=== PATIENT | male | born 1965 | race African-American/Black ===

== ENCOUNTER 2016-10-08 07:34 | Emergency (ER) | payer OTHER ==
[2016-10-08 07:39] VITALS: BP 125/85; PULSE 70; TEMP 97.6; BMI 27.0
--- NOTE | 2016-10-08 08:12 | PDOC ---
History of Present Illness - General Chief Complaint: Cold Symptoms Stated Complaint: WEAKNESS Time Seen by Provider: 10/08/16 07:46 History Source: Patient Exam Limitations: No Limitations - History of Present Illness Initial Comments: 10/08/16 08:12 CHIEF COMPLAINT: Cold symptoms HISTORY OF PRESENT ILLNESS: This is a 50 year old male with no significant past medical history who presents to the ED complaining of three days of chills, frontal headache, rhinorrhea, and dry cough. He has some chest pain when coughing only, but none at rest. He denies shortness of breath. He took 800mg Motrin prior to arrival with no relief of symptoms. Vital signs are unremarkable. REVIEW OF SYSTEMS: GENERAL/CONSTITUTIONAL: Chills. No weakness. No weight change. HEAD, EYES, EARS, NOSE AND THROAT: Frontal headache, rhinorrhea. CARDIOVASCULAR: Chest pain with coughing only. RESPIRATORY: Cough. No wheezing or shortness of breath. GASTROINTESTINAL: No nausea, vomiting, diarrhea or constipation. GENITOURINARY: No dysuria, frequency, or change in urination. MUSCULOSKELETAL: No joint or muscle swelling or pain. No neck or back pain. SKIN: No rash or easy bruising. NEUROLOGIC: No headache, vertigo, loss of consciousness, or loss of sensation. PSYCHIATRIC: No depression or anxiety. ENDOCRINE: No increased thirst. No abnormal weight change. HEMATOLOGIC/LYMPHATIC: No anemia, easy bleeding, or history of blood clots. ALLERGIC/IMMUNOLOGIC: No hives or skin allergy. No latex allergy. PHYSICAL EXAM: GENERAL: The patient is awake, alert, and fully oriented, in no acute distress. HEAD: Normal with no signs of trauma. ENT: Rhinorrhea, frontal sinus tenderness. LUNGS: Clear to auscultation bilaterally. Normal excursion. No respiratory distress or use of accessory muscles. CV: RRR, S1/S2, no MRG. Cap refill < 2 sec. ABDOMEN: Soft, non-distended, non-tender. EXTREMITIES: Normal range of motion, no edema. NEUROLOGICAL: Normal speech, normal gait. CN II-XII grossly intact. PSYCH: Normal mood, normal affect. SKIN: Warm, dry, normal turgor, no rashes or lesions noted. Past History - Past Medical History Allergies/Adverse Reactions: Allergies Allergy/AdvReac Type Severity Reaction Status Date / Time penicillin V Allergy Verified 10/08/16 07:35 Home Medications: Ambulatory Orders Levofloxacin [Levaquin -] 500 mg PO DAILY #7 tablet 10/08/16 Oseltamivir Phosphate [Tamiflu] 75 mg PO BID #10 capsule 10/08/16 Other medical history: none - Immunization History Immunization Up to Date: Yes - Psycho/Social/Smoking Cessation Hx Anxiety: No Suicidal Ideation: No Smoking Status: No Smoking History: Never smoked Have you smoked in the past 12 months: No Number of Cigarettes Smoked Daily: 0 Information on smoking cessation initiated: No Hx Alcohol Use: No Drug/Substance Use Hx: No Substance Use Type: None *Physical Exam - Vital Signs Last Vital Signs Temp Pulse Resp BP Pulse Ox 97.6 F 70 18 125/85 100 10/08/16 07:36 10/08/16 07:36 10/08/16 07:36 10/08/16 07:36 10/08/16 07:36 ED Treatment Course - RADIOLOGY Radiology Studies Ordered: Category Date Time Status CHEST PA & LAT [RAD] Stat Radiology 10/08/16 08:10 Ordered Medical Decision Making - Medical Decision Making 10/08/16 09:20 A/P: 50 year old male with cold/sinusitis symptoms. 1. Levaquin (PCN allergy) and flonase for sinusitis 2. CXR: no infiltrate 3. Flu A positive *DC/Admit/Observation/Transfer Diagnosis at time of Disposition: Influenza A Sinusitis Qualifiers: Sinusitis location: frontal Chronicity: acute Recurrence: non-recurrent Qualified Code(s): J01.10 - Acute frontal sinusitis, unspecified - Discharge Dispostion Disposition: HOME Admit: No - Prescriptions Prescriptions: Levofloxacin [Levaquin -] 500 mg PO DAILY #7 tablet Oseltamivir Phosphate [Tamiflu] 75 mg PO BID #10 capsule - Referrals Referrals: Rohit López MD [Primary Care Provider] - 1 week - Patient Instructions Printed Discharge Instructions: DI for Sinusitis, DI for Influenza -- Adult Additional Instructions: -Take Levaquin and use Flonase spray as prescribed for sinusitis -Take Tamiflu for influenza; you MUST stay home from work -Rest and stay well-hydrated -Follow up with your primary care doctor -Return here for any concerning symptoms - Post Discharge Activity Work/School Note: Back to Work
[2016-10-08] MEDS ORDERED: FLUTICASONE PROP 0.05% 16 GM NASAL SPRAY NS ONE (08:50)
== END 2016-10-08 09:22 | disposition home or self-care (01) ==
LOC: JER 07:34
DX: J09.X2 Influenza due to identified novel influenza A virus with other respiratory manifestations (principal); J01.10 Acute frontal sinusitis, unspecified
CPT/HCPCS: 71020-TC; 87804; 99281-25

== ENCOUNTER 2018-06-08 03:33 | Emergency (ER) | payer OTHER ==
[2018-06-08 03:53] VITALS: BMI 30.5
--- NOTE | 2018-06-08 04:12 | PDOC ---
History of Present Illness - General Chief Complaint: Sore Throat Stated Complaint: SORE THROAT Time Seen by Provider: 06/08/18 03:37 History Source: Patient Exam Limitations: No Limitations - History of Present Illness Initial Comments: 06/08/18 04:36 Best Contact: PCP:Dr. James. López Pmhx:0 Pshx:0 Allergies: PCN/throat closes FH:0 Social Hx: Cigarettes/ denies Alcohol/ social Drugs/0 LMP:N/A 52-year-old male presents to the emergency department complaining of a sore throat 2 days. Patient states the pain is described as 3/10 sore nonradiating intermittent discomfort without alleviating or exacerbating factors. Patient denies any nausea/vomiting, fever/chills, headache, dizziness, lightheadedness, facial pains, rate, runny nose, rhinorrhea, nasal congestion, facial pains, neck pain/stiffness, back pains, shortness of breath, chest pain, abdominal discomfort. Past History - Past Medical History Allergies/Adverse Reactions: Allergies Allergy/AdvReac Type Severity Reaction Status Date / Time penicillin V Allergy Verified 10/08/16 07:35 - Immunization History Immunization Up to Date: Yes - Suicide/Smoking/Psychosocial Hx Smoking Status: No Smoking History: Never smoked Have you smoked in the past 12 months: No Number of Cigarettes Smoked Daily: 0 Information on smoking cessation initiated: No Hx Alcohol Use: Yes Drug/Substance Use Hx: No Substance Use Type: None Review of Systems - Review of Systems Able to Perform ROS?: Yes Comments:: 06/08/18 04:38 CONSTITUTIONAL: Absent: fever, chills, diaphoresis, generalized weakness, malaise, loss of appetite HEENT: +sore throat Absent: rhinorrhea, nasal congestion,throat swelling, difficulty swallowing, mouth swelling, ear pain, eye pain, visual Changes CARDIOVASCULAR: Absent: chest pain, loss of consciousness, palpitations, irregular heart rate, peripheral edema RESPIRATORY: Absent: cough, shortness of breath, dyspnea with exertion, orthopnea, wheezing, stridor, hemoptysis GASTROINTESTINAL: Absent: abdominal pain, abdominal distension, nausea, vomiting, diarrhea, constipation, melena, hematochezia GENITOURINARY: Absent: dysuria, frequency, urgency, hesitancy, hematuria, flank pain, genital pain MUSCULOSKELETAL: Absent: myalgia, arthralgia, joint swelling SKIN: Absent: rash, itching, pallor Is the patient limited Telugu proficient: No *Physical Exam - Vital Signs Last Vital Signs Temp Pulse Resp BP Pulse Ox 98.8 F 88 17 127/55 99 06/08/18 03:48 06/08/18 03:48 06/08/18 03:48 06/08/18 03:48 06/08/18 03:48 - Physical Exam Comments: 06/08/18 04:38 GENERAL: Well developed, well nourished. Awake and alert. No acute distress. HEENT: Normocephalic, atraumatic. PERRLA, EOMI. No conjunctival pallor. Sclera are non- icteric. Moist mucous membranes. Oropharynx is clear. NECK: Supple. Full ROM. No JVD. Carotid pulses 2+ and symmetric, without bruits. No thyromegaly. No lymphadenopathy. CARDIOVASCULAR: Regular rate and rhythm. No murmurs, rubs, or gallops. Distal pulses are 2+ and symmetric. PULMONARY: No evidence of respiratory distress. Lungs clear to auscultation bilaterally. No wheezing, rales or rhonchi. *DC/Admit/Observation/Transfer Diagnosis at time of Disposition: Pharyngitis Qualifiers: Pharyngitis/tonsillitis etiology: unspecified etiology Qualified Code(s): J02.9 - Acute pharyngitis, unspecified - Discharge Dispostion Disposition: HOME Condition at time of disposition: Stable Decision to Admit order: No - Referrals Referrals: Mello Julian MD [Staff Physician] - - Patient Instructions Printed Discharge Instructions: DI for Viral Pharyngitis Additional Instructions: Garfle with salt water Tylenol alternating with motrin every 6 hours as needed for pain Follow up with the ENT within the next 3 days Return to the ER for severe/persistent/worsening symptoms - Post Discharge Activity
[2018-06-08 04:29] VITALS: BP 128/89; PULSE 67; TEMP 98.3
== END 2018-06-08 04:35 | disposition home or self-care (01) ==
LOC: JER 03:33
DX: J02.9 Acute pharyngitis, unspecified (principal)
CPT/HCPCS: 87070; 87430; 99281-25

== ENCOUNTER 2018-11-24 09:21 | Emergency (ER) | payer OTHER ==
[2018-11-24 09:32] VITALS: BP 143/99; PULSE 71; TEMP 98.3; BMI 27.6
[2018-11-24] MEDS ORDERED: ACETAMINOPHEN 325 MG TABLET (FP) PO ONE (10:10)
[2018-11-24] MEDS ORDERED: ACETAMINOPHEN 325 MG TABLET (FP) ONE (10:13)
--- NOTE | 2018-11-24 10:14 | PDOC ---
History of Present Illness - General Chief Complaint: Cold Symptoms Stated Complaint: FLU SYSMPTOMS Time Seen by Provider: 11/24/18 09:59 History Source: Patient Exam Limitations: Clinical Condition - History of Present Illness Initial Comments: 11/24/18 10:11 Patient with no significant past medical history present with complaint of nasal congestion, headache, body aches, runny nose and right ear pressure with tactile fever and chills since yesterday. Patient also reports sore throat since yesterday. Patient did not check temperature. Denies nausea, vomiting, abdominal pain. Patient denies any other symptoms Timing/Duration: 24 hours Past History - Past Medical History Allergies/Adverse Reactions: Allergies Allergy/AdvReac Type Severity Reaction Status Date / Time penicillin V Allergy Verified 11/24/18 09:29 Home Medications: Ambulatory Orders Benzonatate [Tessalon Pearls -] 100 mg PO Q8H PRN #12 capsule 11/24/18 Ipratropium [place] 2 spray NS BID PRN #1 spray 11/24/18 Methylprednisolone [Medrol Dose Adria] 4 mg PO ASDIR #21 tablet 11/24/18 Oseltamivir Phosphate [Tamiflu] 75 mg PO BID 5 Days #10 capsule 11/24/18 COPD: No - Immunization History Immunization Up to Date: Yes - Suicide/Smoking/Psychosocial Hx Smoking Status: No Smoking History: Never smoked Have you smoked in the past 12 months: No Number of Cigarettes Smoked Daily: 0 Hx Alcohol Use: Yes Drug/Substance Use Hx: No Substance Use Type: None Review of Systems - Review of Systems Able to Perform ROS?: Yes Is the patient limited Armenian proficient: No Constitutional: Yes: See HPI, Chills, Fever (tactile), Malaise HEENTM: Yes: Symptoms Reported, See HPI, Nose Congestion, Throat Pain. No: Eye Pain, Blurred Vision, Tearing, Recent change in vision, Double Vision, Cataracts , Ear Pain, Ocular Prothesis, Ear Discharge, Nose Pain, Tinnitus, Nose Bleeding , Hearing Loss, Throat Swelling, Mouth Pain, Dental Problems, Difficulty Swallowing, Mouth Swelling, Other Respiratory: Yes: Symptoms reported, See HPI, Cough (intermittent). No: Orthopnea, Shortness of Breath, SOB with Exertion, SOB at Rest, Stridor, Wheezing, Productive cough, Hemoptysis, Other Cardiac (ROS): No: Symptoms Reported, See HPI, Chest Pain, Edema, Irregular Heart Rate, Lightheadedness, Palpitations, Syncope, Chest Tightness, Other ABD/GI: No: Constipated, Diarrhea, Nausea, Vomiting, Abdominal cramping Neurological: Yes: Headache. No: Numbness, Paresthesia, Tingling, Dizziness All Other Systems: Reviewed and Negative *Physical Exam - Vital Signs Last Vital Signs Temp Pulse Resp BP Pulse Ox 98.3 F 71 18 143/99 100 11/24/18 09:29 11/24/18 09:29 11/24/18 09:29 11/24/18 09:29 11/24/18 09:29 - Physical Exam Comments: 11/24/18 10:12 GENERAL: Well developed, well nourished. Awake and alert. No acute distress. HEENT: Normocephalic, atraumatic. PERRLA, EOMI. No conjunctival pallor. Sclera are non-icteric. Moist mucous membranes. Oropharynx is clear. NECK: Supple. Full ROM. CARDIOVASCULAR: Regular rate and rhythm. No murmurs, rubs, or gallops. Distal pulses are 2+ and symmetric. PULMONARY: No evidence of respiratory distress. Lungs clear to auscultation bilaterally. No wheezing, rales or rhonchi. ABDOMINAL: Soft. Non-tender. Non-distended. No rebound or guarding. No organomegaly. Normoactive bowel sounds. MUSCULOSKELETAL Normal range of motion at all joints. SKIN: Warm and dry. No cyanosis. Normal capillary refill. No rashes. No jaundice. NEUROLOGICAL: Alert, awake, appropriate. Gait is normal without ataxia. PSYCHIATRIC: Cooperative. Good eye contact. Appropriate mood General Appearance: Yes: Nourished, Appropriately Dressed. No: Apparent Distress Moderate Sedation - Procedure Monitoring Vital Signs: Procedure Monitoring Vital Signs Temperature 98.3 F 11/24/18 09:29 Pulse Rate 71 11/24/18 09:29 Respiratory Rate 18 11/24/18 09:29 Blood Pressure 143/99 11/24/18 09:29 O2 Sat by Pulse Oximetry (%) 100 11/24/18 09:29 Medical Decision Making - Medical Decision Making 11/24/18 10:13 Patient with no significant past medical history present with complaint of 24 hour history of URI symptoms with sore throat and tactile fever and chills. Clinical exam unremarkable lungs clear to auscultation and no pharyngeal erythema. Symptoms likely influenza versus strep pharyngitis versus viral syndrome. Rapid strep and rapid flu tests ordered. Tylenol 650 mg by mouth ordered for headache. Treat based on lab results 11/24/18 11:06 Rapid strep and rapid flu negative. Patient's symptoms likely viral syndrome. Patient is stable for outpatient treatment with Medrol Adria and Tessalon Perles for cough with nasal spray for nasal congestion and Tylenol as needed for fever. Patient stable for discharge *DC/Admit/Observation/Transfer Diagnosis at time of Disposition: Viral syndrome, Pharyngitis with viral syndrome URI (upper respiratory infection) Qualifiers: URI type: unspecified viral URI Qualified Code(s): J06.9 - Acute upper respiratory infection, unspecified - Discharge Dispostion Disposition: HOME Condition at time of disposition: Stable Decision to Admit order: No - Prescriptions Prescriptions: Benzonatate [Tessalon Pearls -] 100 mg PO Q8H PRN #12 capsule PRN Reason: Cough Ipratropium [place] 2 spray NS BID PRN #1 spray PRN Reason: nasal congestion Methylprednisolone [Medrol Dose Adria] 4 mg PO ASDIR #21 tablet Oseltamivir Phosphate [Tamiflu] 75 mg PO BID 5 Days #10 capsule - Referrals Referrals: Familia López MD [Primary Care Provider] - - Patient Instructions Printed Discharge Instructions: DI for Viral Upper Respiratory Infection -- Adult Additional Instructions: No strep and flu test was negative. Take medications as prescribed. Increase fluid intake. Take Tylenol as needed for fever. Follow-up with primary cast needed - Post Discharge Activity
== END 2018-11-24 11:12 | disposition home or self-care (01) ==
LOC: JERFT 09:21
DX: J06.9 Acute upper respiratory infection, unspecified (principal); J02.9 Acute pharyngitis, unspecified; B34.9 Viral infection, unspecified
CPT/HCPCS: 87070; 87804; 87880; 99281-25

== ENCOUNTER 2019-03-04 07:57 | Emergency (ER) | payer OTHER | END 2019-03-04 09:29 | disposition home or self-care (01) | LOC: JER 07:57 ==

== ENCOUNTER 2019-11-18 07:40 | Emergency (ER) | payer OTHER ==
[2019-11-18 07:54] VITALS: BP 129/83; PULSE 63; TEMP 98.4; BMI 27.6
--- NOTE | 2019-11-18 08:00 | PDOC ---
History of Present Illness - General Chief Complaint: Cold Symptoms Stated Complaint: FLU-LIKE SYMPTOMS Time Seen by Provider: 11/18/19 07:50 - History of Present Illness Initial Comments: 11/18/19 07:55 CHIEF COMPLAINT: cold symptoms HISTORY OF PRESENT ILLNESS: 54 yo M with no significant PMh presents sore throat, nasal congestion, and cough x 2 days. Patient denies fever, chills, N/V /D. Patient has not taken anything for symptoms. Report pain with swallowing. Denies sick contacts or recent travel. PAST MEDICAL HISTORY: Denies past medical history FAMILY HISTORY: Denies SOCIAL HISTORY: Denies tobacco, alcohol, illicit drug use. SURGICAL HISTORY: Denies ALLERGIES: No known drug allergies REVIEW OF SYSTEMS General/Constitutional: Denies fever or chills. Denies weakness, weight change. HEENT: Sore throat, runny nose x 2 days. Denies change in vision. Denies ear pain or discharge. Cardiovascular: Denies chest pain or shortness of breath. Respiratory: Cough since this morning. Gastrointestinal: Denies nausea, vomiting, diarrhea or constipation. Denies rectal bleeding. Genitourinary: Denies dysuria, frequency, or change in urination. Musculoskeletal: Denies joint or muscle swelling or pain. Denies neck or back pain. Skin and breasts: Denies rash or easy bruising. Neurologic: Denies headache, vertigo, loss of consciousness, or loss of sensation. Psychiatric: Denies depression or anxiety. PHYSICAL EXAM General Appearance: Well-appearing, appropriately dressed. No apparent distress , no intoxication. HEENT: Mildly erythematous posterior oropharynx, post nasal drip visualized. Tonsils 1+ b/l without exudate. EOMI, PERRLA, normal ENT inspection, normal voice, TMs normal, pharynx normal. No conjunctival pallor. No photophobia, scleral icterus. Neck: Supple. Trachea midline. No tenderness, rigidity, carotid bruit, stridor , lymphadenopathy, or thyromegaly. Respiratory/Chest: Lungs CTAB. No shortness of breath, chest tenderness, respiratory distress, accessory muscle use. No crackles, rales, rhonchi, stridor , wheezing, dullness Cardiovascular: RRR. S1, S2. No JVD, murmur, bradycardia, tachycardia. Vascular Pulses: Dorsalis-Pedis (R): 2+, Dorsalis-Pedis (L): 2+ Gastrointestinal/Abdominal: Normal bowel sounds. Abdomen soft, non-distended. No tenderness or rebound tenderness. No organomegaly, pulsatile mass, guarding , hernia, hepatomegaly, splenomegaly. Lymphatic: No adenopathy, tenderness. Musculoskeletal/Extremities: Normal inspection. FROM of all extremities, normal capillary refill. Pelvis Stable. No CVA tenderness. No tenderness to extremities, pedal edema, swelling, erythema or deformity. Integumentary: Appropriate color, dry, warm. No cyanosis, erythema, jaundice or rash Neurologic: director of events II-XII intact. Fully oriented, alert. Appropriate mood/affect. Motor strength 5/5. No appreciable EOM palsy, facial droop or sensory deficit. 11/18/19 08:01 Past History - Past Medical History Allergies/Adverse Reactions: Allergies Allergy/AdvReac Type Severity Reaction Status Date / Time penicillin V Allergy Verified 03/04/19 08:02 Penicillins Allergy Verified 11/18/19 07:47 Home Medications: Ambulatory Orders Ipratropium [place] 2 spray NS BID PRN #1 spray 03/04/19 Montelukast Na [Singulair -] 10 mg PO HS #7 tablet 03/04/19 Benzonatate [Tessalon Perle -] 100 mg PO TID PRN #21 capsule 11/18/19 Pseudoephedrine HCl [Pseudoephedrine ER] 120 mg PO BID #20 tablet.er 11/18/19 COPD: No - Immunization History Immunization Up to Date: Yes - Psycho Social/Smoking Cessation Hx Smoking Status: No Smoking History: Never smoked Have you smoked in the past 12 months: No Number of Cigarettes Smoked Daily: 0 Information on smoking cessation initiated: No Hx Alcohol Use: Yes (occasional) Drug/Substance Use Hx: No Substance Use Type: None *Physical Exam - Vital Signs Last Vital Signs Temp Pulse Resp BP Pulse Ox 98.4 F 63 19 129/83 100 11/18/19 07:44 11/18/19 07:44 11/18/19 07:44 11/18/19 07:44 11/18/19 07:44 Medical Decision Making - Medical Decision Making 11/18/19 16:38 54 yo M with no significant PMh presents sore throat, nasal congestion, and cough x 2 days. strep negative Clinical presentation consistent with acute URI. -tessalon perles -jayashree Advised patient to take medication as prescribed and follow up with PCP within the next week. Advised patient of signs and symptoms for return to ED. Patient verbalized understanding and agrees to plan. Discharge - Discharge Information Problems reviewed: Yes Clinical Impression/Diagnosis: URI (upper respiratory infection) Qualifiers: URI type: unspecified viral URI Qualified Code(s): J06.9 - Acute upper respiratory infection, unspecified Condition: Stable Disposition: HOME - Admission No - Additional Discharge Information Prescriptions: Benzonatate [Tessalon Perle -] 100 mg PO TID PRN #21 capsule PRN Reason: Cough Pseudoephedrine HCl [Pseudoephedrine ER] 120 mg PO BID #20 tablet.er - Follow up/Referral Referrals: Familia López MD [Primary Care Provider] - - Patient Discharge Instructions Patient Printed Discharge Instructions: DI for Viral Upper Respiratory Infection -- Adult - Post Discharge Activity Work/Back to School Note: Back to Work
== END 2019-11-18 08:34 | disposition home or self-care (01) ==
LOC: JER 07:40
DX: J06.9 Acute upper respiratory infection, unspecified (principal); Z88.0 Allergy status to penicillin
CPT/HCPCS: 87070; 87077; 87880; 99283-25

== ENCOUNTER 2021-08-09 14:04 | Emergency (ER) | payer OTHER ==
[2021-08-09 14:21] VITALS: BMI 25.0
[2021-08-09] MEDS ORDERED: FAMOTIDINE 20 MG/50 ML IVPB 20 MG/50 ML MG IVPB ONE ×2 (15:04→15:12)
[2021-08-09] MEDS ORDERED: ACETAMINOPHEN 1000 MG/100 ML VIAL IVPB ONE (15:04)
[2021-08-09] MEDS ORDERED: ACETAMINOPHEN INJECTION 100 ML IVPB ONE (15:12)
[2021-08-09 16:02] LABS: BASO % 0.5 % (0-2.0); EOS % 0.1 % (0-4.5); HEMOGLOBIN 14.8 GM/dL (11.7-16.9); LYMPH % 14.3 % (8-40); MCH 30.8 pg (25.7-33.7); MCHC 34.4 g/dl (32.0-35.9); MEAN CELL VOLUME 89.5 fl (80-96); MONO % 8.2 % (3.8-10.2); NEUT % 76.9 % (42.8-82.8); PLATELET COUNT 206 10^3/uL (134-434); RDW 12.9 % (11.9-15.9); WHITE BLOOD COUNT 6.5 K/mm3 (4.0-10.0)
[2021-08-09 16:20] LABS: ALBUMIN 3.8 g/dl (3.4-5.0); BLOOD UREA NITROGEN 14.3 mg/dL (7-18); CALCIUM 9.2 mg/dL (8.5-10.1)
[2021-08-09 16:23] LABS: CREATININE 1.4 mg/dL (0.55-1.3)
[2021-08-09 16:24] LABS: TOT PROT 7.3 g/dl (6.4-8.2)
[2021-08-09 16:25] LABS: BILIRUBIN,TOTAL 0.4 mg/dL (0.2-1)
[2021-08-09] MEDS ORDERED: SODIUM CHLORIDE 1,000 ML IV STA (17:59)
[2021-08-09] MEDS ORDERED: TAMSULOSIN HCL 0.4 MG CAP PO ONE (18:00)
[2021-08-09] MEDS ORDERED: KETOROLAC TROMETHAMINE 30 MG/1 ML VIAL IVPUSH ONE (18:00)
[2021-08-09] MEDS ORDERED: KETOROLAC TROMETHAMINE 30 MG/1 ML VIAL ONE (18:04)
[2021-08-09] MEDS ORDERED: TAMSULOSIN HCL 0.4 MG CAP ONE (18:04)
[2021-08-09 18:07] LABS: EPI CELLS 2 /uL (0-25.1); HYALINE CASTS 0 /uL (0-3.1); PH,URINE 8.5 (5.0-8.0); URINE APPEARANCE CLOUDY; URINE BACTERIA 2 /uL (0-1359); URINE BILIRUBIN NEGATIVE (NEGATIVE); URINE COLOR YELLOW; URINE GLUCOSE (UA) NEGATIVE (NEGATIVE); URINE KETONE 1+ (NEGATIVE); URINE LEUK ESTERASE NEGATIVE (NEGATIVE); URINE NITRITE NEGATIVE (NEGATIVE); URINE PROTEIN TRACE (NEGATIVE); URINE RBC 517 /uL (0-23.9); URINE WBC 2 /uL (0-25.8)
[2021-08-09 19:06] VITALS: BP 132/75; PULSE 75; TEMP 98.2
== END 2021-08-09 19:00 | disposition home or self-care (01) ==
LOC: JER 14:04
PROC: 3E0333Z Introduction of Anti-inflammatory into Peripheral Vein, Percutaneous Approach (ICD-10-PCS; principal; 2021-08-09)
PROC: 3E033GC Introduction of Other Therapeutic Substance into Peripheral Vein, Percutaneous Approach (ICD-10-PCS; 2021-08-09)
PROC: 3E0333Z Introduction of Anti-inflammatory into Peripheral Vein, Percutaneous Approach (ICD-10-PCS; 2021-08-09)
PROC: 3E0337Z Introduction of Electrolytic and Water Balance Substance into Peripheral Vein, Percutaneous Approach (ICD-10-PCS; 2021-08-09)
DX: R10.814 Left lower quadrant abdominal tenderness (principal); N20.0 Calculus of kidney
CPT/HCPCS: 36415; 74177-TC; 80053; 81003; 83690; 85025; 99285-25; J0131; Q9967

== ENCOUNTER 2021-12-03 09:00 | Emergency (ER) | payer OTHER ==
[2021-12-03 09:16] VITALS: BP 148/86; PULSE 59; TEMP 98.9; BMI 26.6
[2021-12-03] MEDS ORDERED: IBUPROFEN 600 MG TABLET (FP) PO ONE ×2 (09:33→09:36)
== END 2021-12-03 10:21 | disposition home or self-care (01) ==
LOC: FER 09:00
DX: M25.562 Pain in left knee (principal)
CPT/HCPCS: 73562-TC-LT-FY; 99283-25

== ENCOUNTER 2021-12-31 06:03 | Emergency (ER) | payer OTHER ==
[2021-12-31 06:36] VITALS: BP 134/86; PULSE 62; TEMP 97.6; BMI 25.8
[2021-12-31] MEDS ORDERED: IBUPROFEN 600 MG TABLET (FP) PO ONE (07:36)
== END 2021-12-31 08:35 | disposition home or self-care (01) ==
LOC: JER 06:03
DX: S63.502A Unspecified sprain of left wrist, initial encounter (principal); X50.0XXA Overexertion from strenuous movement or load, initial encounter
CPT/HCPCS: 73110-TC-LT-FY; 73130-TC-LT-FY; 99283-25

== ENCOUNTER 2022-03-16 06:35 | Emergency (ER) | payer OTHER ==
[2022-03-16 06:41] VITALS: BP 140/90; PULSE 58; TEMP 98; BMI 25.8
[2022-03-16] MEDS ORDERED: DEXAMETHASONE SOD PHOSPHATE 10 MG/1 ML VIAL IM ONE (07:21)
[2022-03-16] MEDS ORDERED: NAPROXEN 500 MG TABLET PO ONE (07:21)
[2022-03-16] MEDS ORDERED: NAPROXEN 500 MG TABLET ONE (07:31)
[2022-03-16] MEDS ORDERED: DEXAMETHASONE SOD PHOSPHATE 10 MG/1 ML VIAL ONE (07:31)
[2022-03-16 09:36] LABS: THROAT:GRP A STREP NOT DETECTED (NOTDETECTED)
== END 2022-03-16 08:22 | disposition home or self-care (01) ==
LOC: FER 06:35
PROC: 3E023GC Introduction of Other Therapeutic Substance into Muscle, Percutaneous Approach (ICD-10-PCS; principal; 2022-03-16)
DX: J02.9 Acute pharyngitis, unspecified (principal); R05.9 Cough, unspecified
CPT/HCPCS: 0241U-QW; 71046-TC-FY; 87651; 99284-25; J1100

== ENCOUNTER 2022-08-13 06:48 | Emergency (ER) | payer OTHER ==
[2022-08-13 06:53] VITALS: BP 134/90; PULSE 62; RESP 18; TEMP 98.8; BMI 25.5
[2022-08-13] MEDS ORDERED: IBUPROFEN 600 MG TABLET (FP) PO ONE ×2 (07:28→07:30)
== END 2022-08-13 07:44 | disposition home or self-care (01) ==
LOC: FER 06:48
DX: J02.9 Acute pharyngitis, unspecified (principal)
CPT/HCPCS: 0241U-QW; 87651; 99283-25

== ENCOUNTER 2022-10-01 07:28 | Emergency (ER) | payer OTHER ==
[2022-10-01 07:44] VITALS: BP 140/81; PULSE 68; RESP 16; TEMP 98.8; BMI 25.9
[2022-10-01] MEDS ORDERED: IBUPROFEN 600 MG TABLET (FP) PO ONE ×2 (07:57→08:01)
[2022-10-01 09:38] LABS: THROAT:GRP A STREP NOT DETECTED (NOTDETECTED)
== END 2022-10-01 08:57 | disposition home or self-care (01) ==
LOC: FER 07:28
DX: J02.9 Acute pharyngitis, unspecified (principal)
CPT/HCPCS: 0241U-QW; 71046-TC-FY; 87651; 99284-25

== ENCOUNTER 2023-09-10 07:05 | Emergency (ER) | payer OTHER ==
[2023-09-10 07:12] VITALS: BP 145/89; PULSE 72; RESP 16; TEMP 98.8; BMI 25.0
[2023-09-10] MEDS ORDERED: IBUPROFEN 400 MG TABLET (FP) PO ONE ×2 (07:48→07:49)
== END 2023-09-10 07:53 | disposition home or self-care (01) ==
LOC: FER 07:05
DX: J02.9 Acute pharyngitis, unspecified (principal); R09.81 Nasal congestion; R05.9 Cough, unspecified; M79.10 Myalgia, unspecified site; J06.9 Acute upper respiratory infection, unspecified; Z20.822 Contact with and (suspected) exposure to COVID-19
CPT/HCPCS: 0241U-QW; 99283-25

== ENCOUNTER 2023-11-20 06:55 | Emergency (ER) | payer OTHER ==
[2023-11-20 07:04] VITALS: BP 140/93; PULSE 66; RESP 18; TEMP 98.4; BMI 25.8
[2023-11-20] MEDS ORDERED: KETOROLAC TROMETHAMINE 30 MG/1 ML VIAL ONE (07:47)
[2023-11-20] MEDS ORDERED: LIDOCAINE 5% TOPICAL PATCH ONE (07:47)
[2023-11-20] MEDS: KETOROLAC TROMETHAMINE 30 MG/1 ML VIAL IM ONE (08:01)
[2023-11-20] MEDS: LIDOCAINE 5% TOPICAL PATCH TP ONE (08:02)
== END 2023-11-20 08:06 | disposition home or self-care (01) ==
LOC: FER 06:55
PROC: 3E0233Z Introduction of Anti-inflammatory into Muscle, Percutaneous Approach (ICD-10-PCS; principal; 2023-11-20)
DX: S46.912A Strain of unspecified muscle, fascia and tendon at shoulder and upper arm level, left arm, initial encounter (principal); M25.512 Pain in left shoulder; X58.XXXA Exposure to other specified factors, initial encounter; Y93.43 Activity, gymnastics
CPT/HCPCS: 73030-TC-LT-FY; 99284-25

== ENCOUNTER 2024-01-05 08:46 | Emergency (ER) | payer OTHER ==
[2024-01-05 09:11] VITALS: BP 149/98; PULSE 55; RESP 20; TEMP 98; BMI 25.8
[2024-01-05] MEDS ORDERED: KETOROLAC TROMETHAMINE 15 MG/ML VIAL ONE (09:42)
[2024-01-05] MEDS: KETOROLAC TROMETHAMINE 15 MG/ML VIAL IM ONE (09:49)
== END 2024-01-05 09:56 | disposition home or self-care (01) ==
LOC: FER 08:46
PROC: 3E0233Z Introduction of Anti-inflammatory into Muscle, Percutaneous Approach (ICD-10-PCS; principal; 2024-01-05)
DX: M25.512 Pain in left shoulder (principal)
CPT/HCPCS: 99284-25

== ENCOUNTER 2025-04-22 07:10 | Emergency (ER) | payer OTHER ==
[2025-04-22 07:18] VITALS: BP 147/95; PULSE 64; RESP 18; TEMP 97.9; BMI 27.0
[2025-04-22] MEDS ORDERED: guaiFENesin/D-METHORPHAN HB 10 ML UNIT-DOSE CUPS ONE (07:58)
[2025-04-22] MEDS ORDERED: IBUPROFEN 600 MG TABLET (FP) PO ONE (07:58)
[2025-04-22] MEDS: guaiFENesin/D-METHORPHAN HB 10 ML UNIT-DOSE CUPS PO ONE (07:59)
[2025-04-22] MEDS: IBUPROFEN 600 MG TABLET (FP) PO ONE (08:00)
== END 2025-04-22 08:11 | disposition home or self-care (01) ==
LOC: FER 07:10
DX: J02.9 Acute pharyngitis, unspecified (principal); R05.9 Cough, unspecified; J06.9 Acute upper respiratory infection, unspecified
CPT/HCPCS: 87637-QW; 99283-25